=== PATIENT | female | born 2000 | race Caucasian/White ===

== ENCOUNTER 2019-09-17 22:37 | Emergency (ER) | payer OTHER ==
[~2019-09-17] VITALS: Ht 167.6 cm; Wt 77.1 kg
[2019-09-17 22:37] VITALS: BP 135/76
--- NOTE | 2019-09-17 22:39 | NUR ---
PT BIBA BLS. TAKEN TO BED 9
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
--- NOTE | 2019-09-17 23:17 | NUR ---
Dr. Avelar examining patient.
[2019-09-17] MEDS: KETOROLAC 60 MG/2 ML VIAL IM ONE (23:47)
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
--- NOTE | 2019-09-18 00:05 | NUR ---
Patient discharged with v/s stable. Written and verbal after care instructions given and explained. Patient alert, oriented and verbalized understanding of instructions. Ambulatory with steady gait USING CRUTCHES. PT DISCHARGED TO MOTHER. All questions addressed prior to discharge. ID band removed. Patient advised to follow up with PMD. Rx of CIPRO, MOTRIN, AND NORCO given. Patient educated on indication of medication including possible reaction and side effects. Opportunity to ask questions provided and answered.
== END 2019-09-18 00:05 | disposition home or self-care (01) ==
LOC: MED 22:37
DX: S93.402A Sprain of unspecified ligament of left ankle, initial encounter (principal); I10 Essential (primary) hypertension; F12.10 Cannabis abuse, uncomplicated; Y08.89XA Assault by other specified means, initial encounter; Y93.89 Activity, other specified; Y92.89 Other specified places as the place of occurrence of the external cause; Y99.8 Other external cause status
CPT/HCPCS: 73610; 81002; 81025; 96372; 99283; J1885; Q0092

== ENCOUNTER 2019-09-25 16:41 | Emergency (ER) | payer OTHER ==
[~2019-09-25] VITALS: Ht 167.6 cm; Wt 92.5 kg
[2019-09-25 17:00] VITALS: BP 124/68
--- NOTE | 2019-09-25 17:39 | NUR ---
19 Y/O F BUG BITE RLE. REDNESS NOTED ON SITE, UNSURE WHICH BUG. NO OTHER S/S.HX HTN.PATIENT STATES PAIN OF 0/10 AT THIS TIME. PATIENT POSITIONED FOR COMFORT; HOB ELEVATED; BEDRAILS UP X1; BED DOWN. ER MD MADE AWARE OF PT STATUS.
[2019-09-25 18:20] VITALS: BP 119/65
--- NOTE | 2019-09-25 18:20 | NUR ---
Patient discharged with v/s stable. Written and verbal after care instructions given and explained. Patient alert, oriented and verbalized understanding of instructions. Ambulatory with steady gait. All questions addressed prior to discharge. ID band removed. Patient advised to follow up with PMD. Rx of KEFLEX, MOTRIN, BENADRYL & PREDNISONE given. Patient educated on indication of medication including possible reaction and side effects. Opportunity to ask questions provided and answered.
== END 2019-09-25 18:20 | disposition home or self-care (01) ==
LOC: MED 16:41
DX: L03.115 Cellulitis of right lower limb (principal); F12.10 Cannabis abuse, uncomplicated
CPT/HCPCS: 99283